=== PATIENT | male | born 1960 | race Caucasian/White ===

== ENCOUNTER → 2020-12-17 | Outpatient (CLI) | payer BC, OTHER ==
[~2020-12-17] MED LIST: ASPI-963 PO; CHOL500045 PO; DOCU-131 PO; HYDR-1067 PO; METOPROLOL SUCCINATE; PHEN100T90 PO; TRIM100T PO
== END | disposition home or self-care (01) ==
LOC: STAR 13:22
PROVIDERS: ATTEND Urology
DX: Z20.822 Contact with and (suspected) exposure to COVID-19 (principal); C66.9 Malignant neoplasm of unspecified ureter
CPT/HCPCS: 87635

== ENCOUNTER → 2021-01-14 | Outpatient (CLI) | payer OTHER | END | disposition home or self-care (01) | LOC: STAR 10:32 | PROVIDERS: ATTEND Anesthesiology | DX: Z20.822 Contact with and (suspected) exposure to COVID-19 (principal) | CPT/HCPCS: U0003 ==

== ENCOUNTER 2021-01-20 11:44 | Inpatient (IN) | payer OTHER ==
[~2021-01-20] VITALS: Ht 170.2 cm; Wt 77.0 kg
[~2021-01-20 11:44] MED LIST changes: +BUPIVACAINE/PF 0.25% ONE; +EPINEPHRINE 1 MG/ML, 1ML ONE
[2021-01-20] MEDS ORDERED: ASPIRIN PO (12:25)
[2021-01-20] MEDS ORDERED: LACTATED RINGERS 1,000 ML IV SCH (12:30)
[2021-01-20] MEDS ORDERED: LIDOCAINE-MPF 1%, 2ML INFIL ONE (12:30)
[2021-01-20] MEDS ORDERED: PLEASE ENTER HEIGHT AND WEIGHT MC SCH (12:30)
[2021-01-20] MEDS ORDERED: CHLORHEXIDINE 15 ML UDC PO ONE (12:30)
[2021-01-20] MEDS ORDERED: MIDAZOLAM 1 MG/ML, 2ML ONE (14:13)
[2021-01-20] MEDS ORDERED: FENTANYL PF 250 MCG/5ML ONE (14:13)
[2021-01-20] MEDS ORDERED: GEMCITABINE HCL 2,000 MG in SODIUM CHLORIDE 0.9% 80 ML IS ONE (15:00)
[2021-01-20] MEDS ORDERED: PROMETHAZINE 25 MG/ML, 1ML IVPush PRN (16:00)
[2021-01-20] MEDS ORDERED: LORazepam 2 MG/ML, 1ML IVPush PRN (16:00)
[2021-01-20] MEDS ORDERED: OXYcodone 5 MG/5 ML ORAL.SOL UDC PO PRN (16:00)
[2021-01-20] MEDS ORDERED: LABETALOL 5MG/ML, 20ML IV PRN (16:00)
[2021-01-20] MEDS ORDERED: hydrALAzine 20 MG/ML, 1ML IV PRN (16:00)
[2021-01-20] MEDS ORDERED: HYDROmorphone 1 MG/ML, 1ML INJ IVPush PRN (16:00)
[2021-01-20] MEDS ORDERED: ACETAMINOPHEN 325 MG TABLET PO PRN (16:00)
[2021-01-20] MEDS ORDERED: ALBUTEROL SULFATE 2.5 MG/3 ML NPPB PRN (16:00)
[2021-01-20] MEDS ORDERED: METHOCARBAMOL 1,000 MG in DEXTROSE 5% 100 ML IV PRN (16:00)
[2021-01-20] MEDS ORDERED: MEPERIDINE/PF 25MG/0.5ML IVPush PRN (16:00)
[2021-01-20] MEDS ORDERED: CEFAZOLIN 1,000 MG ONE (16:53)
[2021-01-20] MEDS ORDERED: LIDOCAINE-MPF 2% ,5ML ONE (16:53)
[2021-01-20] MEDS ORDERED: ROCURONIUM 10MG/ML,5ML ONE (16:53)
[2021-01-20] MEDS ORDERED: NEOSTIGMINE 1 MG/ML, 10ML ONE (16:53)
[2021-01-20] MEDS ORDERED: ONDANSETRON 2MG/ML, 2ML ONE (16:53)
[2021-01-20] MEDS ORDERED: GLYCOPYRROLATE 0.2MG/1ML, 5ML ONE (16:53)
[2021-01-20] MEDS ORDERED: PROPOFOL 10 MG/ML, 20ML ONE (16:53)
[2021-01-20] MEDS ORDERED: DEXAMETHASONE 4 MG/ML, 1ML ONE (16:53)
[2021-01-20] MEDS ORDERED: NEOSPORIN OINT, 15GM ONE (17:14)
[2021-01-20] MEDS ORDERED: FENTANYL PF 100 MCG/2ML ONE ×2 (18:46→19:12)
[2021-01-20] MEDS ORDERED: OXYcodone 5 MG/5 ML ORAL.SOL UDC ONE (19:12)
[2021-01-20] MEDS: FENTANYL PF 100 MCG/2ML IV PRN ×2 (19:15→19:25)
[2021-01-20] MEDS ORDERED: HYDROmorphone 1 MG/ML, 1ML INJ ONE (19:44)
[2021-01-20] MEDS ORDERED: ONDANSETRON 2MG/ML, 2ML IV PRN (20:30)
[2021-01-20] MEDS ORDERED: OPIUM/BELLADONNA SUPP.RECT 16.2-30 MG PR PRN (20:30)
[2021-01-20] MEDS ORDERED: HYDROcodone/APAP 5/325 TABLET PO PRN (20:30)
[2021-01-20] MEDS ORDERED: HYDROmorphone 1 MG/ML, 1ML INJ IV PRN (20:30)
[2021-01-20] MEDS: D5%-LACTATED RINGERS 1,000 ML IV SCH (22:13)
[2021-01-20] MEDS: KETOROLAC 30 MG/1 ML IV SCH (22:13)
[2021-01-20 22:18] VITALS: BP 114/75
[2021-01-21 00:10] VITALS: BP 114/70
[2021-01-21 03:42] VITALS: BP 106/64
[2021-01-21] MEDS: D5%-LACTATED RINGERS 1,000 ML IV SCH ×2 (04:33→12:30)
[2021-01-21] MEDS: KETOROLAC 30 MG/1 ML IV SCH ×2 (04:34→10:23)
[2021-01-21 08:30] VITALS: BP 99/63
[2021-01-21] MEDS ORDERED: OXYB10TA6 PO (11:36)
[2021-01-21] MEDS ORDERED: TAMS-11 PO (11:36)
[2021-01-21] MEDS ORDERED: DOCU-131 PO (11:36)
[2021-01-21] MEDS ORDERED: HYDR-1067 PO (11:36)
[2021-01-21 13:00] VITALS: BP_SYST 100; BP_DIAS 62; BP_DIAS 66
== END 2021-01-21 14:25 | disposition home or self-care (01) | DRG 657 ==
LOC: ORIP 11:44 → 4NE 20:20 → DCLOUNGE 01-21 14:18
PROVIDERS: ADMIT Urology; ATTEND Urology
PROC: 0TB74ZZ Excision of Left Ureter, Percutaneous Endoscopic Approach (ICD-10-PCS; 2021-01-20)
PROC: 0TS74ZZ Reposition Left Ureter, Percutaneous Endoscopic Approach (ICD-10-PCS; 2021-01-20)
PROC: 8E0W4CZ Robotic Assisted Procedure of Trunk Region, Percutaneous Endoscopic Approach (ICD-10-PCS; 2021-01-20)
PROC: 0T5B4ZZ Destruction of Bladder, Percutaneous Endoscopic Approach (ICD-10-PCS; principal; 2021-01-20 13:30)
DX: C66.2 Malignant neoplasm of left ureter (principal); N13.30 Unspecified hydronephrosis; C67.9 Malignant neoplasm of bladder, unspecified
CPT/HCPCS: 36415; J3490; J7121; 85014; 85018; 88305; 88331; C1729; G0378; J0171; J0690; J1100; J1170; J1885; J2250; J2405; J2704; J2710; J3010; C2617; J2800; J7120; J9201